=== PATIENT | male | born 1990 | race Caucasian/White ===

== ENCOUNTER 2018-04-24 22:44 | Inpatient (IN) | payer BC, OTHER ==
[~2018-04-24] VITALS: Ht 177.8 cm; Wt 130.0 kg
[2018-04-24 23:53] LABS: Basophils # (auto) 0.1 uL; Basophils % (auto) 0.6 % (0.0-2.0); Eosinophils # (auto) 0.2 uL; Eosinophils % (auto) 1.5 % (0.0-7.0); Hematocrit 44.3 % (41.0-53.0); Hemoglobin 15.2 g/dL (13.5-17.5); Lymphocytes # (auto) 1.3 uL; Mean Corpuscular Hemoglobin 30.7 pg (28.0-32.0); Mean Corpuscular Hgb Conc. 34.3 g/dL (32.0-36.0); Mean Corpuscular Volume 89.5 fL (80.0-100.0); Monocytes # (auto) 1.1 uL; Monocytes % (auto) 8.5 % (0.0-12.0); Neutrophils # (auto) 10.3 uL; Neutrophils % (auto) 79.4 % (37.0-80.0); Platelet Count (auto) 301 10^3/uL (140-450); Red Blood Cells 4.94 10^6/uL (4.5-5.90); Red Cell Distribution Width 12.7 % (11.8-14.3); White Blood Cell 12.9 10^3/uL (4.4-10.8)
[2018-04-25 00:12] LABS: Albumin 3.7 g/dL (3.4-5.0); BUN/Creatinine Ratio 13.9; Calcium 8.8 mg/dL (8.5-10.1); Potassium 3.9 mmol/L (3.5-5.1)
[2018-04-25 00:15] LABS: Bilirubin, Total 0.8 mg/dL (0.2-1.0)
[2018-04-25] MEDS ORDERED: SODIUM CHLORIDE 0.9% 1,000 ML IV ONE (08:29)
[2018-04-25] MEDS ORDERED: NALBUPHINE HCL 10 MG/1ml INJECTION IV ONE (08:30)
[2018-04-25] MEDS ORDERED: PROMETHAZINE HCL 25 MG/ML 1ML IV PRN ×2 (08:30→12:00)
[2018-04-25 10:06] LABS: INR 0.97 (0.9-1.15); Prothrombin Time 10.4 sec (9.27-12.13)
[2018-04-25 10:36] LABS: Urine WBC None Seen /hpf (0 - 3)
[2018-04-25 11:00] LABS: Urine Amorphous Crystal MANY /hpf (None Seen); Urine Bacteria NONE SEEN /hpf (None Seen); Urine Blood Negative /uL (Negative); Urine Specific Gravity 1.032 (1.001-1.035)
[2018-04-25] MEDS ORDERED: TEMAZEPAM 15 MG CAP PO PRN (12:00)
[2018-04-25] MEDS ORDERED: MORPHINE SULF(PF) 0.5MG/ML 10ML VIAL IV PRN (12:00)
[2018-04-25] MEDS: SODIUM CHLORIDE 0.9% 1,000 ML IV SCH ×2 (12:00→22:08)
[2018-04-25] MEDS ORDERED: HYDROmorphone HCL 2 MG/ML VL IV PRN (12:00)
[2018-04-25] MEDS ORDERED: LORazepam 0.5 MG TAB PO PRN (12:00)
[2018-04-25] MEDS ORDERED: LEVOFLOXACIN 500MG 100 ML IV ONE (12:00)
[2018-04-25] MEDS ORDERED: ACETAMINOPHEN 500 MG TAB PO PRN (12:00)
[2018-04-25] MEDS ORDERED: NITROGLYCERIN 0.4 MG SL TAB SL PRN (12:00)
[2018-04-25] MEDS: PANTOPRAZOLE 40 MG TAB PO SCH (12:06)
[2018-04-25] MEDS ORDERED: IOHEXOL 300 MG/ML 100ML BOTTLE IJ ONE (12:31)
[2018-04-25] MEDS: NALBUPHINE HCL 10 MG/1ml INJECTION IV PRN ×2 (13:21→18:37)
[2018-04-25 13:50] VITALS: BP 137/82
[2018-04-25] MEDS: CLINDAMYCIN 600MG IV 50 ML IV SCH ×2 (15:12→22:07)
[2018-04-25 17:00] VITALS: BP 130/75
[2018-04-25 20:00] VITALS: BP 159/76
[2018-04-25 21:36] VITALS: BP 159/76
[2018-04-26] MEDS: NALBUPHINE HCL 10 MG/1ml INJECTION IV PRN ×2 (02:22→11:21)
[2018-04-26 04:59] VITALS: BP 142/85
[2018-04-26] MEDS: CLINDAMYCIN 600MG IV 50 ML IV SCH ×3 (05:24→21:49)
[2018-04-26] MEDS: HYDROcodone-ACET 5/325MG TAB PO PRN ×2 (06:21→13:26)
[2018-04-26 07:34] VITALS: BP 136/81
[2018-04-26 08:00] LABS: Basophils # (auto) 0 uL; Basophils % (auto) 0.2 % (0.0-2.0); Eosinophils # (auto) 0 uL; Eosinophils % (auto) 0.4 % (0.0-7.0); Hematocrit 41.7 % (41.0-53.0); Hemoglobin 14.4 g/dL (13.5-17.5); Lymphocytes # (auto) 0.9 uL; Lymphocytes % (auto) 8.4 % (10.0-50.0); Mean Corpuscular Hgb Conc. 34.5 g/dL (32.0-36.0); Mean Corpuscular Volume 89.7 fL (80.0-100.0); Monocytes # (auto) 1.2 uL; Monocytes % (auto) 11.3 % (0.0-12.0); Neutrophils # (auto) 8.7 uL; Neutrophils % (auto) 79.7 % (37.0-80.0); Nucleated Red Blood Cells % 0.1 %; Platelet Count (auto) 262 10^3/uL (140-450); Red Blood Cells 4.65 10^6/uL (4.5-5.90); Red Cell Distribution Width 12.7 % (11.8-14.3); White Blood Cell 10.9 10^3/uL (4.4-10.8)
[2018-04-26] MEDS: LEVOFLOXACIN 500MG 100 ML IV SCH (11:11)
[2018-04-26] MEDS: PANTOPRAZOLE 40 MG TAB PO SCH (11:11)
[2018-04-26] MEDS: SODIUM CHLORIDE 0.9% 1,000 ML IV SCH ×2 (11:12→18:00)
[2018-04-26 12:30] VITALS: BP 130/71
[2018-04-26] MEDS: HYDROmorphone HCL 2 MG TAB PO PRN ×2 (16:01→21:50)
[2018-04-26 16:48] VITALS: BP 146/85
[2018-04-26 20:00] VITALS: BP 145/83
[2018-04-26 21:56] VITALS: BP 145/83
[2018-04-27] MEDS: HYDROmorphone HCL 2 MG TAB PO PRN ×3 (02:16→14:48)
[2018-04-27 04:58] VITALS: BP 122/74
[2018-04-27] MEDS: CLINDAMYCIN 600MG IV 50 ML IV SCH ×2 (05:37→14:22)
[2018-04-27] MEDS: SODIUM CHLORIDE 0.9% 1,000 ML IV SCH ×2 (06:19→14:22)
[2018-04-27 08:00] VITALS: BP 127/77
[2018-04-27] MEDS: PANTOPRAZOLE 40 MG TAB PO SCH (09:43)
[2018-04-27] MEDS: LEVOFLOXACIN 500MG 100 ML IV SCH (09:43)
[2018-04-27 12:00] VITALS: BP 136/80
[2018-04-27 13:01] VITALS: BP 136/80
== END 2018-04-27 15:35 | disposition home or self-care (01) | DRG 392 ==
LOC: ER 22:50 → TELE 22:51 → TELE-EAST 04-25 14:30
PROVIDERS: ADMIT Internal Medicine; ATTEND Internal Medicine Pulmonary Disease
DX: R19.09 Other intra-abdominal and pelvic swelling, mass and lump (principal); C64.9 Malignant neoplasm of unspecified kidney, except renal pelvis; C64.2 Malignant neoplasm of left kidney, except renal pelvis; Z68.41 Body mass index [BMI] 40.0-44.9, adult; F17.210 Nicotine dependence, cigarettes, uncomplicated; K76.0 Fatty (change of) liver, not elsewhere classified; E66.01 Morbid (severe) obesity due to excess calories; D72.829 Elevated white blood cell count, unspecified; R10.32 Left lower quadrant pain; Z82.49 Family history of ischemic heart disease and other diseases of the circulatory system; Z85.47 Personal history of malignant neoplasm of testis; Z88.1 Allergy status to other antibiotic agents
CPT/HCPCS: 36415; 71046; 74176; 74177; 76775; 80053; 81001; 82105; 82150; 82378; 83615; 83690; 83735; 84443; 84702; 85025; 85610; 85730; 87040; 87086; 96361; 96365; 96375; J1956; J3490